=== PATIENT | male | born 1940 | race Two or more races ===

== ENCOUNTER 2019-06-04 07:33 | Outpatient (CLI) | payer OTHER | END 2019-06-04 07:38 | disposition home or self-care (01) | LOC: LAB 07:33 | DX: N40.0 Benign prostatic hyperplasia without lower urinary tract symptoms (principal); N39.0 Urinary tract infection, site not specified ==

== ENCOUNTER 2019-06-04 08:06 | Outpatient (CLI) | payer OTHER | END 2019-06-04 08:11 | disposition home or self-care (01) | LOC: SONOGRAMA 08:06 | DX: R10.84 Generalized abdominal pain (principal) ==